=== PATIENT | female | born 1970 | race Caucasian/White ===

== ENCOUNTER 2018-04-02 09:55 | Emergency (ER) | payer OTHER ==
[2018-04-02 10:01] VITALS: TEMP 98.1
--- NOTE | 2018-04-02 10:33 | ED ---
General Adult HPI - General Chief complaint: Fall Stated complaint: [facility]-Elbow & Hip Injury Time Seen by Provider: 04/02/18 10:00 Source: patient, RN notes reviewed Mode of arrival: ambulatory Limitations: no limitations - History of Present Illness Initial comments: This is a 47-year-old female who presents emergency Department complaining of left elbow pain. Patient states she was at work spot along quickly lost her balance and fell her left elbow. Patient has full range of motion of the elbow but it hurts on the posterior aspect. Patient denies hitting her head or injuring her neck. Patient denies any headache or neck pain. Patient denies any numbness or weakness. Patient denies any hip pain though initially it was a little sore she landed on her left buttocks. Patient states currently it does not hurt she has full range of motion of the hip. Patient denies any foot or ankle pain. Though she thought there might be a little swelling to the left foot there was no pain to palpation or on ambulation. Patient denies any other problems at this time. - Related Data Home Medications Medication Instructions Recorded Confirmed Lisinopril [Zestril] 10 mg PO HS 04/02/18 04/02/18 Naltrexone HCl/Bupropion HCl 1 tab PO BID 04/02/18 04/02/18 [Contrave ER 8-90 mg Tablet] Sertraline [Zoloft] 100 mg PO HS 04/02/18 04/02/18 Topiramate 50 mg PO HS 04/02/18 04/02/18 Allergies Allergy/AdvReac Type Severity Reaction Status Date / Time No Known Allergies Allergy Verified 04/02/18 10:20 Review of Systems ROS Statement: Those systems with pertinent positive or pertinent negative responses have been documented in the HPI. ROS Other: All systems not noted in ROS Statement are negative. Past Medical History Past Medical History: Hypertension History of Any Multi-Drug Resistant Organisms: None Reported Past Surgical History: Breast Surgery, Orthopedic Surgery Additional Past Surgical History / Comment(s): sinus Past Psychological History: No Psychological Hx Reported Smoking Status: Former smoker Past Alcohol Use History: None Reported Past Drug Use History: None Reported General Exam - General Exam Comments Initial Comments: GENERAL Patient is well-developed and well-nourished. Patient is in mild distress. EYES Patient's pupils are equal and round. Extraocular motion is intact SKIN Unremarkable NEURO The patient is alert and oriented 3 PYSCH Patient has normal interpersonal interactions. MUSCULOSKELETAL Left elbow is tender in the posterior region and is a small contusion. Limitations: no limitations Course Vital Signs 04/02/18 09:58 Temperature 98.1 F Pulse Rate 89 Respiratory 20 Rate Blood Pressure 119/77 O2 Sat by Pulse 98 Oximetry Medical Decision Making - Medical Decision Making Abdominal x-ray shows no acute fracture Disposition Clinical Impression: Elbow contusion Disposition: HOME SELF-CARE Condition: Good Instructions: Contusion in Adults (ED) Is patient prescribed a controlled substance at d/c from ED?: No Referrals: Riley Tyler MD [Primary Care Provider] - 1-2 days Time of Disposition: 11:13
--- NOTE | 2018-04-02 11:09 | XR ---
EXAMINATION TYPE: XR elbow complete LT DATE OF EXAM: 04/02/2018 CLINICAL HISTORY: pain TECHNIQUE: Frontal, lateral and oblique images of the left elbow are obtained. COMPARISON: None. FINDINGS: There is no acute fracture/dislocation evident of the elbow. No abnormal fat pad signs ar e seen. The overlying soft tissue appears unremarkable. Degenerative spurring noted. IMPRESSION: There is no acute fracture or dislocation of the elbow. ICD 10 NO FRACTURE, INITIAL EVALUATION
[2018-04-02 11:35] VITALS: BP 135/86; PULSE 68; RESP 16
== END 2018-04-02 11:40 | disposition home or self-care (01) ==
LOC: EC 09:55
DX: S50.02XA Contusion of left elbow, initial encounter (principal); I10 Essential (primary) hypertension; Z87.891 Personal history of nicotine dependence; Z79.899 Other long term (current) drug therapy; W19.XXXA Unspecified fall, initial encounter; Y92.69 Other specified industrial and construction area as the place of occurrence of the external cause; Y99.0 Civilian activity done for income or pay
CPT/HCPCS: 99283

== ENCOUNTER → 2018-04-25 | Outpatient (CLI) | payer OTHER ==
--- NOTE | 2018-04-25 17:44 | XR ---
EXAMINATION TYPE: XR elbow complete LT DATE OF EXAM: 04/25/2018 COMPARISON: NONE HISTORY: Contusion Pain TECHNIQUE: 3 views FINDINGS: There is spurring on the olecranon process. I see no fracture nor dislocation. There is no sign of joint effusion. Joint spaces are normal. IMPRESSION: Spur formation. No fracture.
== END | disposition home or self-care (01) ==
LOC: RADXRMAIN 17:18
PROVIDERS: ATTEND Emergency Medicine
DX: M77.9 Enthesopathy, unspecified (principal)

== ENCOUNTER → 2020-01-02 | Day surgery (SDC) | payer BC ==
[2019-12-31 11:50] VITALS: BMI 36.3
[~2020-01-02] MED LIST: LACTATED RINGERS 1,000 ML IV SCH; LIDOCAINE 1% (10MG/ML) FOR IV START INTRADERMA PRN; MIDAZOLAM 2 MG/2 ML VIAL ONE; PROPOFOL 10 MG/ML 20 ML VIAL IV ONE; fentaNYL (PF) 50 MCG/ML 2 ML AMP ONE
[2020-01-02 08:44] VITALS: TEMP 98
--- NOTE | 2020-01-02 08:47 | P.GSHP ---
History of Present Illness H&P Date: 01/02/20 Chief Complaint: Screening colonoscopy This a 49-year-old female referred from Dr. Tyler. Patient rents today for screening colonoscopy. She denies any CV GI complaints. She's never had a colonoscopy before. Past Medical History Past Medical History: Hypertension Additional Past Medical History / Comment(s): HX MIGRAINES. History of Any Multi-Drug Resistant Organisms: None Reported Past Surgical History: Breast Surgery, Orthopedic Surgery Additional Past Surgical History / Comment(s): sinus surgery, Right Rotator Cuff, Fidencio Knee Arthroscopy, Breast Reduction Past Anesthesia/Blood Transfusion Reactions: Postoperative Nausea & Vomiting (PONV) Past Psychological History: Anxiety, Depression Smoking Status: Former smoker Past Alcohol Use History: None Reported Additional Past Alcohol Use History / Comment(s): quit smoking over 10 yrs ago., smoked approx <5 yrs. Past Drug Use History: None Reported - Past Family History Mother Family Medical History: Cancer Additional Family Medical History / Comment(s): breast Medications and Allergies Home Medications Medication Instructions Recorded Confirmed Type Lisinopril [Zestril] 20 mg PO HS 04/02/18 12/31/19 History Levocetirizine Dihydrochloride 5 mg PO HS 10/02/19 12/31/19 History [Xyzal] Naproxen Sodium [Aleve] 220 mg PO DIRECTED 10/02/19 12/31/19 History buPROPion XL [Wellbutrin Xl] 150 mg PO HS 10/02/19 12/31/19 History Ascorbic Acid [Vitamin C] 1,000 mg PO DAILY 12/31/19 12/31/19 History Biotin 3,000 mcg PO DAILY 12/31/19 12/31/19 History Melatonin 10 mg PO HS PRN 12/31/19 12/31/19 History Multivit with Calcium,Iron,Min 1 each PO DAILY 12/31/19 12/31/19 History [Women's Multivitamin] Allergies Allergy/AdvReac Type Severity Reaction Status Date / Time hydrocodone [From Vicodin] Allergy headache Verified 12/31/19 11:26 Surgical - Exam Vital Signs Temp Pulse Resp BP Pulse Ox 98 F 86 20 136/71 97 01/02/20 08:25 01/02/20 08:25 01/02/20 08:25 01/02/20 08:25 01/02/20 08:25 - General well developed, well nourished, no distress - Eyes PERRL - ENT normal pinna - Neck no masses - Respiratory normal expansion - Cardiovascular Rhythm: regular - Abdomen Abdomen: soft, non tender Assessment and Plan Assessment: We'll perform screening colonoscopy.
--- NOTE | 2020-01-02 08:55 | P.OP ---
Date of Procedure: 01/02/20 Preoperative Diagnosis: Screening colonoscopy Postoperative Diagnosis: Normal colon Procedure(s) Performed: Colonoscopy Anesthesia: MAC Surgeon: Ted Alfonso Pathology: none sent Condition: stable Disposition: PACU Description of Procedure: PROCEDURE: The patient was placed on the endoscopy table in the lateral position. Digital rectal examination was performed which revealed no abnormalities. . Flexible colonoscope was then placed in the patient's anus and passed throughout the entire colon. The ileocecal valve was visualized. The cecum, ascending, transverse, descending and sigmoid colon were normal. The rectum was normal as well. There were no masses, polyps or diverticula noted in the entire colon. SUMMARY OF FINDINGS: Normal colonoscopy.
[2020-01-02 09:10] VITALS: BP 123/78; PULSE 89; RESP 18
== END | disposition home or self-care (01) ==
LOC: ORWHC2ENDO 08:04
PROVIDERS: ATTEND Surgery
DX: Z12.11 Encounter for screening for malignant neoplasm of colon (principal); I10 Essential (primary) hypertension; G43.909 Migraine, unspecified, not intractable, without status migrainosus; Z98.890 Other specified postprocedural states; F41.9 Anxiety disorder, unspecified; F32.9 Major depressive disorder, single episode, unspecified; Z87.891 Personal history of nicotine dependence; Z80.3 Family history of malignant neoplasm of breast; Z79.1 Long term (current) use of non-steroidal anti-inflammatories (NSAID); Z79.899 Other long term (current) drug therapy; Z88.5 Allergy status to narcotic agent
CPT/HCPCS: 81025; J2250; J3010; J2704; G0121; 45378

== ENCOUNTER → 2024-03-14 | Outpatient (CLI) | payer BC ==
--- NOTE | 2024-04-02 15:51 | MM ---
Reason for Exam: Screening (asymptomatic). Last mammogram was performed 1 year(s) and 3 month(s) ago. Patient History: Menarche at age 11. Patient has no children. Postmenopausal. 2008, Bilateral Reduction. Mother had breast cancer, age 50. Risk Values: Ro 5 year model risk: 2.3%. NCI Lifetime model risk: 15.5%. Prior Study Comparison: 06/11/2004 Bilateral Screening Mammogram, [facility]. 06/28/2004 Right Special View Mammogram, [facility]. 07/08/2005 Bilateral Screening Mammogram, [facility]. 01/15/2020 Bilateral Screening Mammogram, [facility]. 01/25/2021 Bilateral Screening Mammogram, [facility]. 11/28/2022 Bilateral Screening Mammogram, [facility]. Tissue Density: There are scattered areas of fibroglandular density. Findings: Analyzed By CAD. The pattern is symmetrical. Benign calcifications within the right breast. No significant interval changes are evident. No suspicious groups of microcalcifications, spiculated or lobular masses, architectural distortion or other secondary signs of malignancy are mammographically apparent. Overall Assessment: Benign, BI-RAD 2 Management: Screening Mammogram of both breasts in 1 year. A negative mammogram report should not preclude additional follow up of suspicious palpable abnormalities. Patient should continue monthly self breast exam. A clinical breast exam by your physician is recommended on an annual basis and results should be correlated with mammographic findings. Note on Ro scores and lifetime risk: 1. A Ro score greater than 3% is considered moderate risk. If this is the case, consider specialist referral to assess eligibility for a risk reducing agent. 2. If overall lifetime risk for the development of breast cancer is 20% or higher, the patient may qualify for future screening with alternating mammogram and breast MRI. [facility], , 04/02/2024 3:48 PM. Electronically signed and approved by: Santo Cordero D.O. Radiolog[employer]
== END | disposition home or self-care (01) ==
LOC: RADMAMWWP 07:03
PROVIDERS: ATTEND Family Medicine
DX: Z12.31 Encounter for screening mammogram for malignant neoplasm of breast
CPT/HCPCS: 77063; 77067